=== PATIENT | female | born 1955 | race Native Hawaiian/Other Pacific Islander ===

== ENCOUNTER 2016-06-25 07:43 | Outpatient (CLI) | payer OTHER ==
[~2016-06-25] VITALS: Ht 167.6 cm; Wt 122.5 kg
== END 2016-06-25 19:16 | disposition home or self-care (01) ==
LOC: NM 07:43
DX: R94.31 Abnormal electrocardiogram [ECG] [EKG] (principal); E66.8 Other obesity; E11.9 Type 2 diabetes mellitus without complications; E78.4 Other hyperlipidemia
CPT/HCPCS: A9500; J2785

== ENCOUNTER 2020-10-09 09:12 | Outpatient (CLI) | payer OTHER | END 2020-10-09 20:55 | disposition home or self-care (01) | LOC: MAMMO 09:12 | PROVIDERS: ATTEND Registered Nurse | DX: Z12.31 Encounter for screening mammogram for malignant neoplasm of breast (principal); Z13.820 Encounter for screening for osteoporosis; N95.8 Other specified menopausal and perimenopausal disorders ==

== ENCOUNTER 2022-05-30 08:46 | Outpatient (CLI) | payer OTHER | END 2022-05-30 19:32 | disposition home or self-care (01) | LOC: CT 08:46 | PROVIDERS: ATTEND Internal Medicine | DX: R10.31 Right lower quadrant pain (principal) | CPT/HCPCS: 36415; 82565; 84520; Q9963 ==

== ENCOUNTER → 2022-06-13 | Outpatient (CLI) | payer OTHER | LOC: US 10:29 | PROVIDERS: ATTEND Internal Medicine | DX: E05.90 Thyrotoxicosis, unspecified without thyrotoxic crisis or storm (principal) ==